=== PATIENT | female | born 1960 | race Caucasian/White ===

== ENCOUNTER 2016-08-18 16:24 | Outpatient (CLI) | payer OTHER ==
[~2016-08-18 16:24] MED LIST: NAPR-690 PO; RIZA5TAB17 PO
== END 2016-08-18 20:51 | disposition home or self-care (01) ==
LOC: SRD 16:24
PROVIDERS: ATTEND Internal Medicine
DX: M19.072 Primary osteoarthritis, left ankle and foot (principal); M77.32 Calcaneal spur, left foot; M17.12 Unilateral primary osteoarthritis, left knee
CPT/HCPCS: 73564